=== PATIENT | female | born 1970 | race African-American/Black ===

== ENCOUNTER 2016-12-20 18:18 | Emergency (ER) | payer OTHER ==
[~2016-12-20] VITALS: Ht 162.6 cm; Wt 99.3 kg
[2016-12-20] MEDS ORDERED: Lidocaine 2% Visc 15ml soln ORAL ONE (18:45)
[2016-12-20] MEDS ORDERED: Mylanta II UD 30ml ORAL ONE (18:45)
[2016-12-20 19:48] LABS: BASOPHILS % (AUTO) 1.1 % (0.0-2.0); EOSINOPHILS % (AUTO) 1.5 % (0.0-3.0); MEAN CORPUSCULAR HEMOGLOBIN 26.3 PG (27.0-31.0); MEAN CORPUSCULAR HGB CONC 31.7 G/DL (32.0-36.0); MEAN CORPUSCULAR VOLUME 83 FL (80-99); MEAN PLATELET VOLUME 6.6 FL (6.5-10.1); MONOCYTES % (AUTO) 7.6 % (1.0-10.0); NEUTROPHILS % (AUTO) 37.8 % (45.0-75.0); PLATELET COUNT 290 K/UL (150-450); RED BLOOD COUNT 4.63 M/UL (4.20-5.40); RED CELL DISTRIBUTION WIDTH 14.3 % (11.6-14.8); WHITE BLOOD COUNT 5.9 K/UL (4.8-10.8)
[2016-12-20 20:12] LABS: ALANINE AMINOTRANSFERASE 13 U/L (3-33); ALBUMIN/GLOBULIN RATIO 1.3 (1.0-2.7); ANION GAP 11 (5-15); ASPARTATE AMINO TRANSFERASE 18 U/L (5-40); CALCIUM 8.9 mg/dL (8.6-10.2); CARBON DIOXIDE 28 mEQ/L (20-30); CHLORIDE 101 mEQ/L (98-107); CREATININE 0.8 mg/dL (0.5-0.9); GLOMERULAR FILTRATION RATE > 60 mL/min (>60); HEMOLYSIS 3; LIPASE 29 U/L (< 60); POTASSIUM 3.4 mEQ/L (3.4-4.9); SODIUM 140 mEQ/L (135-145); TOTAL PROTEIN 7.2 g/dL (6.6-8.7)
[2016-12-20 20:13] LABS: TROPONIN I < 0.30 ng/mL (<=0.30)
[2016-12-20 20:15] VITALS: BP 127/86
[2016-12-20 20:23] LABS: CKMB 1.5 ng/mL (< 3.8)
--- NOTE | 2016-12-20 20:56 | Emergency Room Report ---
History of Present Illness General Chief Complaint: Abdominal Pain Present Illness HPI 46 YO female presents to the emergency department complaining of continued acid reflux x3 weeks. Patient reports 10 out of 10 in severity burning mid epigastric pain. Patient states she was concerned earlier today when she had some left-sided chest discomfort. Patient denies shortness of breath she denies cough she denies history of cardiac problems, hyperlipidemia or hypertension. Patient reports her father has history of acid reflux and her grandmother had a history of MA. Patient states she tried Prilosec and recently switched to Nexium today without relief of her symptoms. Patient denies vomiting, constipation, diarrhea. Patient states she cannot recall if her pain is worse after eating food. Patient reports her pain is primarily epigastric with some radiation to the right side. She states she had gallbladder removal several years ago. Denies fevers, chills, hematuria, dysuria, frequency, blood in the stool, black tarry stools, recent travel or ill contacts. Pt. has a hx of fibromyalgia and takes chronic pain medication. Denies CP, Palpitations, LOC, AMS, dizziness, Changes in Vision, Sensation, paresthesias, or a sudden severe headache. Allergies: Coded Allergies: AMPICILLIN (Verified Allergy, Severe, 12/20/16) headache, stomach pain n/v Patient History Past Medical History: see triage record, GERD Past Surgical History: none Pertinent Family History: none Last Menstrual Period: now Now: No Immunizations: UTD Reviewed Nursing Documentation: PMH: Agreed, PSxH: Agreed Review of Systems All Other Systems: negative except mentioned in HPI Physical Exam Vital Signs Date Time Temp Pulse Resp B/P (MAP) Pulse Ox O2 Delivery O2 Flow Rate FiO2 12/20/16 18:33 98.1 93 18 124/80 98 Room Air Sp02 EP Interpretation: reviewed, normal General Appearance: no apparent distress, alert, GCS 15, non-toxic Head: normocephalic, atraumatic Eyes: bilateral eye normal inspection, bilateral eye PERRL ENT: hearing grossly normal, normal voice Neck: full range of motion Respiratory: lungs clear, normal breath sounds Cardiovascular #1: regular rate, rhythm, no edema Gastrointestinal: normal bowel sounds, soft, non-distended, no guarding, no pulsatile mass, no rebound, other - some epigastric TTP, Negative Molina signs , Negative MacBurney's sign, Negative Rosvigns Sign, Negative Psoas, No Peritoneal signs. Rectal: deferred Genitourinary: normal inspection, no CVA tenderness Musculoskeletal: back normal, gait/station normal, normal range of motion, non- tender Neurologic: alert, oriented x3, responsive, motor strength/tone normal, sensory intact, speech normal Psychiatric: judgement/insight normal, memory normal, mood/affect normal Skin: normal color, no rash, warm/dry, well hydrated Medical Decision Making PA Attestation Dr. Jamison is my supervising Physician whom patient management has been discussed with. Diagnostic Impression: Primary Impression: Abdominal pain Qualified Codes: R10.13 - Epigastric pain Additional Impression: Gastritis Qualified Codes: K29.70 - Gastritis, unspecified, without bleeding ER Course 46 YO female presents to the emergency department complaining of continued acid reflux x3 weeks. Patient reports 10 out of 10 in severity burning mid epigastric pain. Patient states she was concerned earlier today when she had some left-sided chest discomfort. Patient denies shortness of breath she denies cough she denies history of cardiac problems, hyperlipidemia or hypertension. Patient reports her father has history of acid reflux and her grandmother had a history of MA. Patient states she tried Prilosec and recently switched to Nexium today without relief of her symptoms. Patient denies vomiting, constipation, diarrhea. Patient states she cannot recall if her pain is worse after eating food. Patient reports her pain is primarily epigastric with some radiation to the right side. She states she had gallbladder removal several years ago. Denies fevers, chills, hematuria, dysuria, frequency, blood in the stool, black tarry stools, recent travel or ill contacts. Pt. has a hx of fibromyalgia and takes chronic pain medication. Denies CP, Palpitations, LOC, AMS, dizziness, Changes in Vision, Sensation, paresthesias, or a sudden severe headache. Ddx considered but are not limited to Diverticulitis, acute appy, diarrhea,UC, PUD, GE, pancreatitis, gallstone Vital signs: are WNL, pt. is afebrile, non-toxic in appearance, mild distress. H&PE are most consistent with Gastritis ORDERS: -CBC, CMP, lipase: unremarkable -EKG: - EK BPM NSR - no acute ST changes reviewed by Dr. Jamison, his interpretation was scribed by IBRAHIMA Troncoso - Troponin: less than 0.3 -CK-MB: WNL - Total CK: elevated ED INTERVENTIONS: - zantac 150mg, -Gi Cocktail -d/w pt. results of labs, and recommended close outpatient follow up with PMD and GI Specialist evaluation. d/w pt. to return to the ED with worsening or new symptoms. DISCHARGE: At this time pt. is stable for d/c to home. Will provide printed patient care instructions, and any necessary prescriptions. Care plan and follow up instructions have been discussed with the patient prior to discharge. Labs Test 12/20/16 19:30 White Blood Count 5.9 K/UL (4.8-10.8) Red Blood Count 4.63 M/UL (4.20-5.40) Hemoglobin 12.2 G/DL (12.0-16.0) Hematocrit 38.4 % (37.0-47.0) Mean Corpuscular Volume 83 FL (80-99) Mean Corpuscular Hemoglobin 26.3 PG (27.0-31.0) Mean Corpuscular Hemoglobin Concent 31.7 G/DL (32.0-36.0) Red Cell Distribution Width 14.3 % (11.6-14.8) Platelet Count 290 K/UL (150-450) Mean Platelet Volume 6.6 FL (6.5-10.1) Neutrophils (%) (Auto) 37.8 % (45.0-75.0) Lymphocytes (%) (Auto) 52.0 % (20.0-45.0) Monocytes (%) (Auto) 7.6 % (1.0-10.0) Eosinophils (%) (Auto) 1.5 % (0.0-3.0) Basophils (%) (Auto) 1.1 % (0.0-2.0) Sodium Level 140 mEQ/L (135-145) Potassium Level 3.4 mEQ/L (3.4-4.9) Chloride Level 101 mEQ/L (98-107) Carbon Dioxide Level 28 mEQ/L (20-30) Anion Gap 11 (5-15) Blood Urea Nitrogen 6 mg/dL (7-23) Creatinine 0.8 mg/dL (0.5-0.9) Estimat Glomerular Filtration Rate > 60 mL/min (>60) Glucose Level 105 mg/dL (74-106) Calcium Level 8.9 mg/dL (8.6-10.2) Total Bilirubin < 0.2 mg/dL (0.0-1.2) Aspartate Amino Transf (AST/SGOT) 18 U/L (5-40) Alanine Aminotransferase (ALT/SGPT) 13 U/L (3-33) Alkaline Phosphatase 42 U/L (35-104) Total Creatine Kinase 194 U/L (26-140) Creatine Kinase MB 1.5 ng/mL (< 3.8) Creatine Kinase MB Relative Index 0.7 Troponin I < 0.30 ng/mL (<=0.30) Total Protein 7.2 g/dL (6.6-8.7) Albumin 4.1 g/dL (3.5-5.2) Globulin 3.1 g/dL Albumin/Globulin Ratio 1.3 (1.0-2.7) Lipase 29 U/L (< 60) EKG Diagnostic Results EP Interpretation: Dr. Jamison Rate: normal - 90 Rhythm: NSR ST Segments: no acute changes ASA given to the pt in ED: No PA Scribe Text - EK BPM NSR - no acute ST changes reviewed by Dr. Jamison, his interpretation was scribed by IBRAHIMA Troncoso Last Vital Signs Date Time Temp Pulse Resp B/P (MAP) Pulse Ox O2 Delivery O2 Flow Rate FiO2 12/20/16 18:33 98.1 93 18 124/80 98 Room Air Disposition: HOME, SELF-CARE Condition: Stable Scripts Lidocaine HCl 2% Viscous (Lidocaine HCl 2% Viscous) 100 Ml Solution 10 ML ORAL QID Y for pRN , #200 ML Prov: Janine Troncoso 12/20/16 Ranitidine Hcl* (ZANTAC*) 150 Mg Tablet 150 MG ORAL TWICE A DAY for 14 Days, #28 TAB Prov: Janine Troncoso 12/20/16 Referrals: [facility],REFERRIN (PCP) Patient Instructions: Abdominal Pain, Adult, Gastritis, Adult Additional Instructions: Take medications as directed. Follow up with a GI SPECIALIST in 3-5 days, even if your symptoms have resolved. --Please review list of primary care clinics, if you do not already have a primary care provider Return sooner to ED if new symptoms occur, or current symptoms become worse. - Please note that this Emergency Department Report was dictated using Foodymechanical meter tester technology software, occasionally this can lead to erroneous entry secondary to interpretation by the dictation equipment. Janine Troncoso Dec 20, 2016 20:56
[2016-12-20] MEDS ORDERED: LIDOCAINE VISC100 ML ORAL (21:02)
[2016-12-20] MEDS ORDERED: ZANTAC150 MG ORAL (21:02)
[2016-12-20 21:30] VITALS: BP 130/78
== END 2016-12-20 21:30 | disposition home or self-care (01) ==
LOC: EMR 18:42
DX: K29.70 Gastritis, unspecified, without bleeding (principal); R10.13 Epigastric pain; Z88.8 Allergy status to other drugs, medicaments and biological substances; Z90.49 Acquired absence of other specified parts of digestive tract; M79.7 Fibromyalgia; K21.9 Gastro-esophageal reflux disease without esophagitis
CPT/HCPCS: 36415; 80053; 82550; 82553; 83690; 84484; 85025; 93005; 99284

== ENCOUNTER 2018-03-17 11:45 | Emergency (ER) | payer OTHER ==
[~2018-03-17] VITALS: Ht 162.6 cm; Wt 89.8 kg
[~2018-03-17 11:45] MED LIST: LIDOCAINE VISC100 ML ORAL; ZANTAC150 MG ORAL
[2018-03-17 12:10] VITALS: BP 124/71
[2018-03-17] MEDS ORDERED: ZOLOFT100 MG ORAL (12:13)
--- NOTE | 2018-03-17 12:42 | Emergency Room Report ---
History of Present Illness General Chief Complaint: Pain Source: Patient Present Illness HPI 48-year-old female presents to the emergency department complaining of progressive 10 out of 10 in severity localized right anterior knee pain with progressive swelling of the course of 2 weeks. Patient reports pain is exacerbated upon walking she states that she does not recall a significant trauma or fall she states she did have a syncopal episode a few weeks ago but does not relate having knee pain afterwards. Patient denies open wounds about the knee, erythema or warmth. She denies previous injury to the extremity. Denies numbness tingling or loss of sensation or gross motor movements of the extremities, incontinence of bowel or bladder. Denies CP, Palpitations, LOC, AMS , dizziness, Changes in Vision, weakness or a sudden severe headache. Allergies: Coded Allergies: AMPICILLIN (Verified Allergy, Severe, 03/17/18) headache, stomach pain n/v Patient History Past Medical History: see triage record Past Surgical History: none Pertinent Family History: none Last Menstrual Period: Feb 2018 Now: No Reviewed Nursing Documentation: PMH: Agreed; PSxH: Agreed Nursing Documentation-PMH Past Medical History: No History, Except For Hx Gastrointestinal Problems: Yes - GERD Review of Systems All Other Systems: negative except mentioned in HPI Physical Exam Vital Signs Date Time Temp Pulse Resp B/P (MAP) Pulse Ox O2 Delivery O2 Flow Rate FiO2 03/17/18 11:57 100.2 98 16 124/71 99 Room Air Sp02 EP Interpretation: reviewed, normal General Appearance: no apparent distress, alert, GCS 15, non-toxic Head: normocephalic, atraumatic Eyes: bilateral eye normal inspection, bilateral eye PERRL ENT: hearing grossly normal, normal voice Neck: full range of motion Respiratory: lungs clear, normal breath sounds, speaking full sentences Cardiovascular #1: regular rate, rhythm Rectal: deferred Genitourinary: normal inspection Musculoskeletal: back normal, gait/station normal - compensatory gait, normal range of motion, swelling - right knee, other - no calf swelling or tenderness, tender - anterior right knee Neurologic: alert, oriented x3, responsive, motor strength/tone normal, sensory intact, speech normal, grossly normal Psychiatric: judgement/insight normal Skin: normal color, no rash, warm/dry, well hydrated Medical Decision Making PA Attestation Dr. Grayson is my supervising physician whom pt. management has been discussed with. Diagnostic Impression: Primary Impression: Knee pain, right Qualified Codes: M25.561 - Pain in right knee Additional Impression: Knee effusion, right ER Course 48-year-old female presents to the emergency department complaining of progressive 10 out of 10 in severity localized right anterior knee pain with progressive swelling of the course of 2 weeks. Patient reports pain is exacerbated upon walking she states that she does not recall a significant trauma or fall she states she did have a syncopal episode a few weeks ago but does not relate having knee pain afterwards. Patient denies open wounds about the knee, erythema or warmth. She denies previous injury to the extremity. Denies numbness tingling or loss of sensation or gross motor movements of the extremities, incontinence of bowel or bladder. Denies CP, Palpitations, LOC, AMS , dizziness, Changes in Vision, weakness or a sudden severe headache. Ddx considered but are not limited to Fracture, dislocation, contusion, Sprain/ Strain/Spasm, ligamental injury, septic joint, gout, pseudo gout, Vital signs: are WNL, pt. is afebrile H&PE are most consistent with knee strain/ overuse. ORDERS: X-ray Right knee complete 4 view - negative for fx, Dislocation, or significant soft tissue injury ED INTERVENTIONS: -Toradol IM - -Knee Immobilizer splint applied to the right Knee by autobody technician. Pt. remains neurovascularly intact. --Patient is provided with crutches and instructed on their use Re-Evaluation: pt. states his pain has subsided with ED interventions DISCHARGE: At this time pt. is stable for d/c to home. Will provide printed patient care instructions, and any necessary prescriptions. Care plan and follow up instructions have been discussed with the patient prior to discharge. Other X-Ray Diagnostic Results Other X-Ray Diagnostic Results : X-Ray ordered: Right knee # of Views/Limited Vs Complete: 3 View Indication: Pain EP Interpretation: Yes PA Xray: Interpretation reviewed, by supervising MD, and agrees with findings. Interpretation: no dislocation, no soft tissue swelling, no fractures Impression: No acute disease Electronically Signed by: Janine Troncoso PA-C Last Vital Signs Date Time Temp Pulse Resp B/P (MAP) Pulse Ox O2 Delivery O2 Flow Rate FiO2 03/17/18 12:10 100.2 98 16 124/71 99 Room Air Disposition: HOME, SELF-CARE Condition: Stable Referrals: NON PHYSICIAN (PCP) Patient Instructions: Knee Effusion, [id number], Knee Pain, [id number] Additional Instructions: Take medications as directed. Follow up with an [facility] in 3-5 days, even if your symptoms have resolved. If symptoms persist MRI may be required at the discretion of your PCP or Ortho Specialist. --Please review list of primary care clinics, if you do not already have a primary care provider who can give you an Orthopedic Referral. Return sooner to ED if new symptoms occur, or current symptoms become worse. Do not drink alcohol, drive, or operate heavy machinery while taking [place] as this may cause drowsiness. - Please note that this Emergency Department Report was dictated using elmenuswallpaper inspector and shipper technology software, occasionally this can lead to erroneous entry secondary to interpretation by the dictation equipment. Janine Troncoso Mar 17, 2018 12:42
[2018-03-17] MEDS ORDERED: Ketorolac 30mg Inj IM ONE (13:30)
[2018-03-17] MEDS ORDERED: VOLTAREN100 G1 TP (13:41)
[2018-03-17 14:13] VITALS: BP 126/70
--- NOTE | 2018-03-17 16:05 | Diagnostic Imaging Report ---
Indication: Right knee pain, chronic pain Technique: 3 views of the right knee Comparison: None Findings: There are degenerative changes of the patellofemoral joint. The medial lateral compartments are preserved. No acute fractures. No dislocations. No suprapatellar effusion Impression: Degenerative changes isolated to the patellofemoral joint No acute bony trauma
== END 2018-03-17 14:16 | disposition home or self-care (01) ==
LOC: EMR 12:25
DX: M25.561 Pain in right knee (principal); M25.461 Effusion, right knee; Z88.0 Allergy status to penicillin
CPT/HCPCS: 29505; 73562; 96372; 99283; J1885